=== PATIENT | male | born 1975 | race African-American/Black ===

== ENCOUNTER 2017-08-29 07:12 | Emergency (ER) | payer SELFPAY ==
[~2017-08-29] VITALS: Ht 193 cm; Wt 95.5 kg
[~2017-08-29 07:12] MED LIST: ALBUTEROL SULF8.5 GM IH; CLINDAMYCIN HC300 MG PO; HYDROCODON-ACE1 EAC7 PO; KEFLEX500 MG PO; LORTAB 5-325 M1 EACH PO; MOTRIN600 MG PO; MOTRIN800 MG PO; NON-ASPIRIN PA325 MG PO; PHENERGAN-CODE120 ML PO; PREDNISONE20 MG PO; PREDNISONE50 MG PO; TESSALON PERLE100 MG PO; ZITHROMAX250 MG PO
[2017-08-29] MEDS ORDERED: CLINDAMYCIN HC150 MG PO (08:04)
[2017-08-29] MEDS ORDERED: ULTRAM50 MG PO (08:04)
[2017-08-29 08:08] VITALS: BP 135/84
== END 2017-08-29 08:17 | disposition home or self-care (01) ==
LOC: EME 07:12
DX: K11.20 Sialoadenitis, unspecified (principal); F17.200 Nicotine dependence, unspecified, uncomplicated
CPT/HCPCS: 99281; 99284